=== PATIENT | male | born 1985 | race Caucasian/White ===

== ENCOUNTER 2017-04-22 17:07 | Emergency (ER) | payer OTHER ==
[2017-04-22] MEDS ORDERED: MOTRIN 600 MG PO ONE (18:39)
[2017-04-22] MEDS ORDERED: MOTRIN 600 MG ONE (18:44)
--- NOTE | 2017-04-22 18:59 | ERPHSYRPT ---
- History of Present Illness Time Seen by Provider: 04/22/17 18:34 Source: patient, family Patient Subjective Stated Complaint: injury to right lower leg hit by limb of tree approx [place]. Triage Nursing Assessment: to er c/o injury to left lower leg states hit by limb just below knee. pt reports pain with weight baring to anterior ankle left foot. pt has no obvious deformity or bruising. pedal pulse strong Physician History: CC: Left leg pain Hx: 31 y/o patient of [facility] Basurto. He was at home cutting a tree and the limb went back and hit his left leg. He has pain in left ankle up the left leg. No cuts. No N/T/W. Pain is moderate, worse with movement. No other injuries. Quality: constant Lower Extremities Pain: leg: left Allergies/Adverse Reactions: No Known Drug Allergies Allergy (Unverified 04/22/17 17:25) Home Medications: Lisinopril [Lisinopril] 10 mg PO DAILY 04/22/17 [History] Omeprazole [Omeprazole] 40 mg PO DAILY 04/22/17 [History] Hx Tetanus, Diphtheria Vaccination/Date Given: Yes Hx Influenza Vaccination/Date Given: Yes Hx Pneumococcal Vaccination/Date Given: No - Review of Systems Constitutional: No Symptoms Musculoskeletal: Injury (left leg) Neurological: No Focal Weakness, No Headache, No Parasthesia - Past Medical History Pertinent Past Medical History: No Cardiac History: Hypertension - Past Surgical History Past Surgical History: Yes Musculoskeletal: Orthopedic Surgery - Social History Smoking Status: Never smoker Exposure to second hand smoke: No Drug Use: none Patient Lives Alone: No - Nursing Vital Signs Nursing Vital Signs: Initial Vital Signs Temperature 98.1 F 04/22/17 17:08 Pulse Rate 72 04/22/17 17:08 Respiratory Rate 16 04/22/17 17:08 Blood Pressure 129/79 04/22/17 17:08 Pain Scale Pain Intensity 7 - Physical Exam General Appearance: alert Eyes, Ears, Nose, Throat Exam: moist mucous membranes Neck Exam: normal inspection, non-tender, supple, No tenderness midline Cardiovascular/Respiratory Exam: chest non-tender, normal breath sounds, regular rate/rhythm Neuro/Tendon Exam: normal sensation, normal motor functions Mental Status Exam: alert, oriented x 3, cooperative Skin Exam: normal color, warm, dry, No rash Comments: left leg has no sweleling or bruising noted. Tender left at ankle and below left knee. - Course Nursing assessment & vital signs reviewed: Yes - Radiology Exams left ankle and lower leg X-ray Interpretation: Reviewed by me, No Fracture, Nml Alignment Ordered Tests: Active Orders 24 hr Category Date Time Status Leo [facility] Application [facility] Care 04/22/17 19:05 Active Cold Application STAT Care 04/22/17 18:39 Active Crutches STAT Care 04/22/17 19:05 Active ANKLE (3 VIEWS) Stat Exams 04/22/17 18:53 Taken LOWER LEG Stat Exams 04/22/17 18:39 Taken Medication Summary Discontinued Medications Generic Name Dose Route Start Last Admin Trade Name Freq PRN Reason Stop Dose Admin Ibuprofen 600 mg 04/22/17 18:39 04/22/17 18:51 Motrin 600 Mg PO 04/22/17 18:40 600 mg STAT ONE Administration Ibuprofen Confirm 04/22/17 18:44 Motrin 600 Mg Administered 04/22/17 18:45 Dose 600 mg .ROUTE .STK-MED ONE - Progress Progress Note: 04/22/17 19:06 Contusion instr. Will use ice, leo, crutches, motrin, and follow up SFP as needed. Counseled pt/family regarding: diagnosis, need for follow-up, rad results - Departure Time of Disposition: 19:06 Departure Disposition: Home Clinical Impression: Contusion of left lower leg Qualifiers: Encounter type: initial encounter Qualified Code(s): S80.12XA - Contusion of left lower leg, initial encounter Condition: Stable Critical Care Time: No Referrals: STACY BASURTO NP [Primary Care Provider] - Instructions: Contusion (DC), How to Use Crutches Additional Instructions: CRUTCHES 1. Hold your head up and keep your back straight to help keep your balance. 2. When standing, the top of the crutches should fit 2-3 inches below your armpits. 3. Put your weight on the handgrip with your hands; never put any pressure on your armpits. 4. Go slow until you get your balance and become accustomed to crutch walking. 5. Place each crutch tip 4-6 inches to the front and side of each foot. Move both crutch tips forward on each side 12-15 inches from the tip of your injured leg, while simultaneously moving your injured leg 12-15 inches. Move your uninjured leg forward to the level of the crutch tips. SPRAINS/STRAINS/CONTUSIONS 1. Rest the affected area as much as possible for the next few days. 2. Apply ice to the affected area for 20-30 minutes at a time, several times a day. 3. If you receive an elastic wrap, wear it only while awake for comfort and support. Re-wrap the elastic wrap if it feels too tight or too loose. 4. If swelling is present, elevate the affected part above the level of the heart for at least 2 to 3 days. 5. Use splints, slings, or crutches as instructed. 6. Watch for severe swelling, coldness, numbness, and discoloration of the fingers and toes. See your family physician or return to the emergency department if any of these are noted. Prescriptions: Ibuprofen 600 mg PO Q6H PRN PRN #20 tablet PRN Reason: Pain
[2017-04-22 19:23] VITALS: BP 144/87; PULSE 86; O2SAT 95
--- NOTE | 2017-04-22 21:15 | XRAY ---
Indication: Pain following injury. Comparison: None 2 views of the left lower leg obtained. No bony, articular, or soft tissue abnormalities.
--- NOTE | 2017-04-22 21:18 | XRAY ---
Indication: Pain following injury. Comparison: None 3 views of the left ankle demonstrates tiny posterior heel spur. No other bony, articular, or soft tissue abnormalities.
== END 2017-04-22 19:23 | disposition home or self-care (01) ==
LOC: ED 17:07
DX: S80.12XA Contusion of left lower leg, initial encounter (principal); W22.8XXA Striking against or struck by other objects, initial encounter
CPT/HCPCS: 73590; 73610; 99282; 99283; A9270-GY